=== PATIENT | female | born 1950 | race Caucasian/White ===

== ENCOUNTER 2016-03-30 07:18 | Emergency (ER) ==
[2016-03-30 07:30] VITALS: BP 153/82
[2016-03-30] MEDS ORDERED: NORCO-10 PO ONE (08:02)
--- NOTE | 2016-03-30 08:35 | PROVIDER DOCUMENTATION ---
HPI-Musculoskeletal Pain/Inj - GENERAL Source: patient - HX OF PRESENT ILLNESS-MUSKULOSKELTAL Quality of Pain: reports: aching Severity in ED: severe Onset/Duration: last night Timing: still present Modifying Factors: worse with: movement, palpation Any recent injury?: No Locality of Occurance: Home Similar Symptoms Previously?: No Recently seen or treated by another doctor?: No <Dorcas Campa - Last Filed: 03/30/16 09:29> <Larisa Tran - Last Filed: 03/30/16 09:49> - GENERAL Chief Complaint: Neck Pain Stated Complaint: NECK/EXTREMITY PX Time Seen by Provider: 03/30/16 07:42 - HX OF PRESENT ILLNESS-MUSKULOSKELTAL Nature of Presenting Problem: Hx of arthritis and chronic neck pain with remote hx of C1-C2 fusion reports with cc of left lateral neck pain since last night with left arm tingling. Painful range of motion of neck. Reports was just sitting on the couch watching tv. Denies cp,jaw pain,sob,f,cough. Reports took two loratab 10mg with no relief. (Dorcas Campa) Review of Systems - Adult - REVIEW OF SYSTEMS - ADULT Constitutional: denies: chills, fever, fatique Eyes: reports: no symptoms reported Ears, Nose, Mouth & Throat: reports: no symptoms reported Cardiovascular: denies: chest pain, irregular heart rate, orthopnea Respiratory: reports: no symptoms reported Gastrointestinal: reports: no symptoms reported Genitourinary: reports: no symptoms reported Musculoskeletal: reports: see HPI, neck pain. denies: joint pain, joint swelling, muscle aches Integumentary: reports: no symptoms reported Neurological: reports: no symptoms reported Psychiatric: reports: no symptoms reported Endocrine: reports: no symptoms reported Hematologic/Lymphatic: reports: no symptoms reported Allergic/Immunologic: reports: no symptoms reported All Other Systems: Reviewed and Negative <Dorcas Campa - Last Filed: 03/30/16 09:29> Past History - Adult - PAST MEDICAL HISTORY-ADULT Review of Records: reports: Nursing Assessment Review Major Childhood Illnesses: reports: denies history Cardiovascular: reports: denies history Musculoskeletal: reports: chronic pain Endocrine/Immune: reports: RA, other (chronic heavy metal poisoning) - PRIOR SURGERIES/PROCEDURES Surgical/Procedure History: reports: orthopedic (extremity), joint replacement - PRIOR HOSPITALIZATIONS Prior Hospitalizations: reports: for similar symptoms - IMMUNIZATION STATUS Childhood Immunizations: See Nurse Assessment Flu Vaccine: See Nurse Assessment - FAMILY HISTORY Family History: reviewed, not pertinent - SOCIAL HISTORY Smoking: other (former) Substance Use: none/never <Dorcas Campa - Last Filed: 03/30/16 09:29> Physical Exam-Injury Related - Physical Exam-Injury Related Initial Vital Signs Reviewed: Yes General Appearance: appears well, alert, moderate distress Eyes: PERRL/EOMI, pink conjunctivae Head, Ears, Nose, Mouth & Throat: normocephalic/atraumatic, moist mucous membranes, normal ENT inspection, TMs normal, pharynx normal Neck: limited range of motion, muscle spasm (left lateral neck), pain on movement Respiratory: chest non-tender, lungs clear, normal breath sounds, no pleuratic chest pain, no respiratory distress, no accessory muscle use Cardiovascular: normal peripheral pulses, regular rate, rhythm, no edema, no gallop, no JVD, no murmur Abdominal Exam: normal bowel sounds, non tender, soft, no organomegaly, no pulsatile mass Back Exam: normal inspection Extremity: normal range of motion, non-tender Integumentary: normal color, warm/dry Neurologic: mold puller II-XII nml as tested, grossly normal, no motor/sensory deficits Psych/Mental Status: AL, normal mood/affect, normal thought content, normal thought process, oriented x 3 - Glascow Coma Score Best Eye Response ([place]): (4) open spontaneously Best Verbal Response ([place]): (5) oriented Best Motor Response ([place]): (6) obeys commands [place] Total: 15 <Dorcas Campa - Last Filed: 03/30/16 09:29> Progress - EKG 1 Time of EKG reading by physician:: 08:41 EKG Read and Signed by:: Larisa Tran EKG Interpretation (*Must complete 3 of following elements*): Normal Rate: 70 Rhythm: nsr [place]: normal QRS: normal [place] Interval: normal ST Wave: normal - XRAY 1 XRAY: Bilateral XRAY Study: C-Spine Impression: Abnormal (DJD and postsurgical changes. no fx or other definite acute cspine injury) <CampaDorcas - Last Filed: 03/30/16 09:29> - CT/MRI 1 CT Study: Cervical Spine (DJD and postsurgical changes. No fx or other definite acute C-spine injury.) <Larisa Tran - Last Filed: 03/30/16 09:49> - PLAN OF CARE/RESULTS Progress/Plan/Lab Results: Orders Category Date Time Status CERVICAL SPINE W/O CONTRAST [CT] Stat Exams 03/30/16 08:02 Ordered Hydrocodone/APAP 10 mg/325 mg [[place]-10] Med 03/30/16 08:02 Discontinued 1 each PO NOW ONE EKG [EKG] Stat Ther 03/30/16 08:02 Ordered Vital Signs - 24 hr 03/30/16 07:26 Temperature 98.2 F Pulse Rate 72 Respiratory 18 Rate Blood Pressure 153/82 O2 Sat by Pulse 97 Oximetry (Dorcas Campa) Vital Signs Temp Pulse Resp BP Pulse Ox 03/30/16 07:26 98.2 F 72 18 153/82 97 iodine Allergy (Severe, Verified 05/27/13 05:11) Unknown nervous system shut down per patient hydromorphone HCl * [From Dilaudid] Allergy (Intermediate, Verified 05/27/13 05: 15) ITCHING Sulfa (Sulfonamide Antibiotics) Allergy (Intermediate, Verified 05/27/13 05:11) Unknown severe yeast overgrowth Doxycycline 100 mg PO BID 05/27/13 Gabapentin 600 mg PO BID 05/27/13 Hydroxychloroquine [Plaquenil] 200 mg PO TID 05/27/13 Promethazine [Phenergan] 25 mg PO Q6H PRN PRN 05/27/13 Tizanidine [Zanaflex] 4 mg PO BID PRN 05/27/13 Hydrocodone Bit/Acetaminophen [Hydrocodon-Acetaminophn 10-325] 1 tab PO 4XDAY PRN PRN 02/26/15 Hydrocodone/Acetaminophen [[place] 5-325 Tablet] 1 each PO Q4H PRN PRN #0 tablet 02/26/15 Orders Category Date Time Status CERVICAL SPINE W/O CONTRAST [CT] Stat Exams 03/30/16 08:02 Taken Hydrocodone/APAP 10 mg/325 mg [[place]-10] Med 03/30/16 08:02 Discontinued 1 each PO NOW ONE EKG [EKG] Stat Ther 03/30/16 08:02 Draft (Larisa Tran) Departure - Departure Time of Disposition Order: 09:26 Certified Medical Emergency: Emergent <Dorcas Campa - Last Filed: 03/30/16 09:29> - Departure Time of Disposition Order: 09:48 Certified Medical Emergency: Emergent <Larisa Tran - Last Filed: 03/30/16 09:49> - Departure DIAGNOSIS: Neck muscle spasm Disposition: HOME 01 Condition: Stable Additional Instructions: ED Follow Up Instructions: You have been treated by a care provider in the Emergency Department. These instructions are being provided to you so you can have an understanding of how to care for yourself upon discharge. Upon discharge from the Emergency Department, you are responsible for making arrangements for follow-up care by a physician of your choice. Take all prescribed medications as directed. Return to the Emergency Department immediately for any new or worsening symptoms. You may call the Physician Referral phone number at [phone] to obtain a list of Physicians who are taking new patients. Prescriptions: Methylprednisolone [Medrol Dosepak] 4 mg PO DIRECTED #1 package Referrals: Donavon Anderson MD [Primary Care Provider] - Attestation - Scribe Verification/Attestation Scribe:: Dorcas Campa Acting as Scribe for:: Larisa Tran Scribe documention review:: This chart was documented by a scribe and accurately reflects the service the provider performed and the decisions made by the provider. <Doracs Campa - Last Filed: 03/30/16 09:29> Physician Attestation
--- NOTE | 2016-03-30 08:51 | EKG Report ---
Test Performed on : 03/30/2016 08:41:52 AM Test Reason : CP Blood Pressure : / mmHG Vent. Rate : 070 BPM Atrial Rate : 070 BPM P-R Int : 188 ms QRS Dur : 082 ms QT Int : 388 ms P-R-T Axes : 106 018 019 degrees QTc Int : 419 ms Normal sinus rhythm. Normal ECG When compared with ECG of 21-SEP-2008 10:47, Questionable change in QRS axis Nonspecific T wave abnormality now evident in Inferior leads Unconfirmed Result
--- NOTE | 2016-03-30 12:47 | Diag Imaging Result Document ---
PROCEDURE NAME: CERVICAL SPINE W/O CONTRAST - 03/30/2016 CT CERVICAL SPINE WITHOUT CONTRAST: COMPARISON: None available. FINDINGS: The facets at C1-2 are fused. Metallic wiring is seen at this level. There is degenerative disk disease from C3-4 through C6-7 with mild loss of disk space height and marginal osteophyte formation. This is probably most significant at C3-4 and C4-5. There is also multilevel facet arthropathy, and there is fairly extensive degenerative change at the occipital condyles, more prominent on the left. There is beam hardening artifact from a right shoulder arthroplasty that somewhat obscures the soft tissues at and below the C5 level. Grossly, the central canal appears patent. There is probably some degree of mild foraminal narrowing at a few levels due to facet arthropathy. Surrounding soft tissues are grossly unremarkable. IMPRESSION: Multilevel degenerative change and postsurgical changes at C1-2. No evidence of fracture or other definite acute C-spine injury. [facility]
== END 2016-03-30 10:21 | disposition home or self-care (01) ==
LOC: P.ED 07:18
DX: M62.838 Other muscle spasm (principal); M54.2 Cervicalgia; R20.2 Paresthesia of skin; M06.9 Rheumatoid arthritis, unspecified; G89.29 Other chronic pain; Z79.899 Other long term (current) drug therapy; Z98.1 Arthrodesis status
CPT/HCPCS: 72125; 93005